=== PATIENT | male | born 1940 | race Caucasian/White ===

== ENCOUNTER 2021-11-03 09:17 | Outpatient (CLI) | payer MEDICARE, OTHER ==
--- NOTE | 2021-11-04 10:12 | XRAY Report ---
PROCEDURE: Hand 3 View BILAT INDICATIONS: BILATERAL HAND PX TECHNIQUE: 3 views of the bilateral hands acquired. COMPARISON: 10/03/2015 FINDINGS: Right hand: No acute fracture or dislocation. Mild to moderate diffuse first CMC and interphalangeal osteoarthritic changes. No convincing erosions. There are particularly prominent osteophytes at the s econd MCP joint. Left hand: Ring finger ring is seen. No fracture or dislocation identified. No convincing erosions. M ild to moderate diffuse osteoarthritis, particularly at multiple interphalangeal joints, slightly les s severe to the right hand. Some bone fragments around the first MCP joint may be from old injury. Soft tissues: No radiopaque foreign body identified bilaterally. IMPRESSION: Mild to moderate diffuse osteoarthritis, as described above, slightly more severe in the right hand. No convincing osseous erosions or acute injury. Particularly bulky osteophytes are seen again at the right second MCP joint. Reviewed by: Aubrey Duenas MD on 11/04/2021 10:11 AM PDT Approved by: Aubrey Duenas MD on 11/04/2021 10:11 AM PDT Station ID: [id number]
== END 2021-11-03 09:18 | disposition home or self-care (01) ==
LOC: DI.N 09:17
PROVIDERS: ATTEND Physician Assistant
DX: M19.041 Primary osteoarthritis, right hand (principal); M19.042 Primary osteoarthritis, left hand

== ENCOUNTER 2023-05-02 13:22 | Outpatient (CLI) | payer MEDICARE, OTHER ==
--- NOTE | 2023-05-03 08:16 | Ultrasound Report ---
PROCEDURE: Ankle Brachial Index INDICATIONS: OTH SYMPTOMS AND SIGNS INVOLVING THE CIRC AND RESP TECHNIQUE: Ankle-brachial indices were obtained bilaterally and recorded. COMPARISONS: None. FINDINGS: Right ankle brachial index (VERNON): 1.1 Left ankle brachial index (VERNON): 1.0 Calcified plaques in the posterior tibial arteries bilaterally with biphasic wave form. Calcified plaques in the dorsal pedis arteries bilaterally with biphasic wave form on the left and mo nophasic performed on the right. Healing potential: Ankle pressures >55 mm Hg in non-diabetics and >80 mm Hg in diabetics are likely to achieve primary h ealing of ischemic foot ulcers. Toe pressures >30 mm Hg are likely to achieve primary healing of ischemic foot ulcers, toe or transme tatarsal amputations. IMPRESSION: 1. Normal ankle brachial indices bilaterally. 2. Calcified plaques in distal lower extremity arteries bilaterally with biphasic or monophasic wavef orms. Reviewed by: Byron Martin MD on 05/03/2023 8:15 AM PST Approved by: Byron Martin MD on 05/03/2023 8:15 AM PST Station ID: [id number]
== END 2023-05-02 13:23 | disposition home or self-care (01) ==
LOC: DI 13:22
PROVIDERS: ATTEND Physician Assistant
DX: I70.203 Unspecified atherosclerosis of native arteries of extremities, bilateral legs (principal)
CPT/HCPCS: 93922